=== PATIENT | female | born 1970 | race Caucasian/White ===

== ENCOUNTER 2018-02-22 15:49 | Inpatient (IN) | payer OTHER ==
[~2018-02-22] VITALS: Ht 176.5 cm; Wt 130.0 kg
[2018-02-22 18:37] VITALS: BP 140/91
[2018-02-22] MEDS ORDERED: XANAX0.5 MG PO (20:33)
[2018-02-22] MEDS ORDERED: C-10001000 MG PO (20:34)
[2018-02-22] MEDS ORDERED: ASPIRIN81 M2 PO (20:35)
[2018-02-22] MEDS ORDERED: WELLBUTRIN SR150 MG PO (20:36)
[2018-02-22] MEDS ORDERED: VITAMIN D34000 UNIT PO (20:36)
[2018-02-22] MEDS ORDERED: KLONOPIN1 MG PO (20:37)
[2018-02-22] MEDS ORDERED: TRULICITY0.75 MG/0. SC (20:38)
[2018-02-22] MEDS ORDERED: CYMBALTA60 MG PO (20:38)
[2018-02-22] MEDS ORDERED: MOTRIN800 MG PO (20:39)
[2018-02-22] MEDS ORDERED: HUMALOG KW200 UNIT/1 SC (20:42)
[2018-02-22] MEDS ORDERED: NOVOLIN N100 UNITS/ SC ×2 (20:45→20:46)
[2018-02-22] MEDS ORDERED: MIDRIN1 CAPSULE PO (20:46)
[2018-02-22] MEDS ORDERED: ZESTRIL5 MG PO (20:47)
[2018-02-22] MEDS ORDERED: MEVACOR40 MG PO (20:47)
[2018-02-22] MEDS ORDERED: SYNTHROID50 MCG PO (20:47)
[2018-02-22] MEDS ORDERED: MAGNESIUM400 M1 PO (20:48)
[2018-02-22] MEDS ORDERED: GLUCOPHAGE1000 MG PO (20:48)
[2018-02-22] MEDS ORDERED: WOMEN'S DAILY1 EAC5 PO (20:49)
[2018-02-22] MEDS ORDERED: ZYPREXA5 MG PO (20:49)
[2018-02-22] MEDS ORDERED: TOPROL XL50 MG PO (20:49)
[2018-02-22] MEDS ORDERED: DESYREL 150 MG150 MG PO (20:50)
[2018-02-22] MEDS ORDERED: PRILOSEC20 MG PO (20:50)
[2018-02-23 07:30] VITALS: BP 92/51
[2018-02-23 10:12] VITALS: BP 117/79
[2018-02-23 13:15] LABS: THYROTROPIN (TSH) 2.2 MIU/L (0.4-5.5)
[2018-02-23 14:01] LABS: FREE T3 4.3 pg/mL (2.3-4.2)
[2018-02-23 16:06] VITALS: BP 124/81
[2018-02-24 07:38] VITALS: BP 107/64
[2018-02-24 14:45] LABS: FOLIC ACID (FOLATE) > 22.0 NG/ML (5.0-22.0)
[2018-02-24 16:18] VITALS: BP 127/88
[2018-02-25 07:53] VITALS: BP 147/85
[2018-02-25] MEDS ORDERED: ARIPIPRAZOLE5 MG PO (08:51)
[2018-02-25] MEDS ORDERED: PROZAC40 MG PO (08:51)
[2018-02-25] MEDS ORDERED: NOVOLOG 10100 UNITS/ SC ×4 (08:51→09:01)
[2018-02-25 10:32] LABS: HEMOGLOBIN A1c (GLYCOHEMOGLOB) 9.1 % (Below 5.7)
== END 2018-02-25 15:04 | disposition home or self-care (01) | DRG 885 ==
LOC: 1WEST 15:49 → ENRESERV 17:36 → 1WEST 18:28
PROVIDERS: Internal Medicine; Psychiatry & Neurology Psychiatry
DX: F33.2 Major depressive disorder, recurrent severe without psychotic features (principal); F60.9 Personality disorder, unspecified; R45.851 Suicidal ideations; E11.9 Type 2 diabetes mellitus without complications; E03.9 Hypothyroidism, unspecified; E78.5 Hyperlipidemia, unspecified; I10 Essential (primary) hypertension; K21.9 Gastro-esophageal reflux disease without esophagitis; E66.9 Obesity, unspecified; Z68.41 Body mass index [BMI] 40.0-44.9, adult; Z91.11 Patient's noncompliance with dietary regimen; Z79.4 Long term (current) use of insulin; Z86.61 Personal history of infections of the central nervous system
CPT/HCPCS: 82306; 82607; 82746; 82948; 83036; 84439; 84443; 84481; 97150 GO; 97165 GO; J1815